=== PATIENT | male | born 1940 | race Caucasian/White ===

== ENCOUNTER 2018-09-18 16:41 | Emergency (ER) | payer MEDICARE, OTHER ==
[2018-09-18 17:30] LABS: BASOPHILS # (AUTO) 0.1 10^3/uL (0.0-0.1); BASOPHILS % (AUTO) 0.9 %; EOSINOPHILS # (AUTO) 0.4 10^3/uL (0.0-0.7); EOSINOPHILS % (AUTO) 7.3 %; HGB - HEMOGLOBIN 13.6 g/dL (14.0-18.0); LYMPHOCYTES # (AUTO) 2.2 10^3/uL (1.5-3.5); LYMPHOCYTES % (AUTO) 36.9 %; MEAN CORPUSCULAR HEMOGLOBIN 32.8 pg (27.0-31.0); MEAN CORPUSCULAR HGB CONC 33.2 g/dL (32.0-36.0); MEAN PLATELET VOLUME 7.8 fL (7.4-11.4); MONOCYTES # (AUTO) 0.6 10^3/uL (0.0-1.0); MONOCYTES % (AUTO) 10.3 %; NEUTROPHILS # (AUTO) 2.7 10^3/uL (1.5-6.6); NEUTROPHILS % (AUTO) 44.6 %; PLT - PLATELET COUNT 234 10^3/uL (130-450); RED BLOOD COUNT 4.15 10^6/uL (4.70-6.10); RED CELL DISTRIBUTION WIDTH 13.2 % (12.0-15.0)
--- NOTE | 2018-09-18 17:37 | ED Physician Documentation ---
History of Present Illness - Stated complaint Stated Complaint: FACE NUMB/DIZZY/FINGERS NUMB - Chief complaint Chief Complaint: General - History obtained from History obtained from: Patient, Friend - History of Present Illness Timing: Last night Pain level max: 0 Pain level now: 0 Improved by: nothing Worsened by: nothing - Additonal information Additional information: 77-year-old male presents to the emergency department with intermittent numbness and tingling to the left side of the face as well as the left tongue left arm and occasional left leg. Has been ongoing since 6:00 last night. Comes and goes. Seems to be becoming more constant now. Has never had similar symptoms. Has had viral symptoms recently. No chest pain. No palpitations. No motor weakness. No difficulty with speech. No visual changes Review of Systems Ten Systems: 10 systems reviewed and negative Constitutional: denies: Fever, Chills Throat: denies: Sore throat Cardiac: denies: Chest pain / pressure, Palpitations Respiratory: denies: Cough GI: denies: Nausea, Vomiting Skin: denies: Rash Musculoskeletal: denies: Neck pain, Back pain Neurologic: denies: Headache, Head injury, LOC PD PAST MEDICAL HISTORY - Past Medical History Past Medical History: Yes Cardiovascular: Hypertension, High cholesterol Endocrine/Autoimmune: Type 2 diabetes - Past Surgical History Past Surgical History: No - Present Medications Home Medications: Ambulatory Orders Medication Instructions Recorded Confirmed Albuterol Sulf [Ventolin Hfa 09/18/18 Inhaler] Aspirin Chewable [[place] 09/18/18 Aspirin] Glimepiride 09/18/18 Metoprolol Tartrate 09/18/18 Multivitamin [Multiple Vitamins] 09/18/18 Pioneer-3/Dha/Epa/Fish Oil [Fish Oil 09/18/18 1,000 mg Softgel] Simvastatin 09/18/18 metFORMIN [Glucophage] 1,000 mg PO BID 09/18/18 09/18/18 - Allergies Allergies/Adverse Reactions: Allergies Allergy/AdvReac Type Severity Reaction Status Date / Time crab Allergy Severe Edema Verified 09/18/18 18:35 morphine AdvReac Unknown Verified 09/18/18 18:49 - Living Situation Living Situation: reports: With family Living Arrangement: reports: At home - Social History Does the pt smoke?: No Smoking Status: Former smoker Does the pt have substance abuse?: No - Family History Family history: reports: Non contributory PD ED PE NORMAL - Vitals Vital signs reviewed: Yes - General General: Alert and oriented X 3, No acute distress - HEENT HEENT: PERRL, Moist mucous membranes - Neck Neck: Supple, no meningeal sign - Cardiac Cardiac: RRR, Strong equal pulses - Respiratory Respiratory: No respiratory distress, Clear bilaterally - Abdomen Abdomen: Soft, Non tender, Non distended - Back Back: No spinal TTP - Derm Derm: Warm and dry - Extremities Extremities: No edema - Neuro Neuro: Alert and oriented X 3, No motor deficit, Normal speech Eye Opening: Spontaneous Motor: Obeys Commands Verbal: Oriented GCS Score: 15 - Psych Psych: Normal mood, Normal affect Results - Vitals Vitals: Vital Signs - 24 hr 09/18/18 09/18/18 09/18/18 16:51 18:33 18:47 Temperature 36.0 C L Heart Rate 72 78 74 Respiratory 16 18 16 Rate Blood Pressure 196/93 H 170/113 H 165/93 H O2 Saturation 99 98 99 09/18/18 19:48 Temperature Heart Rate 65 Respiratory 16 Rate Blood Pressure 155/93 H O2 Saturation 96 Oxygen O2 Source Room air - EKG (time done) 1718 Rate: Rate (enter#) (74) Rhythm: NSR [place]: Normal Intervals: 1st degree AVB QRS: Normal Ischemia: Normal ST segments - Labs Labs: Laboratory Tests 09/18/18 09/18/18 09/18/18 16:22 16:22 16:22 WBC 6.0 RBC 4.15 L Hgb 13.6 L Hct 41.1 L MCV 99.0 H MCH 32.8 H MCHC 33.2 RDW 13.2 Plt Count 234 MPV 7.8 Neut # (Auto) 2.7 Lymph # (Auto) 2.2 Stephens # (Auto) 0.6 Eos # (Auto) 0.4 Baso # (Auto) 0.1 Absolute Nucleated RBC 0.00 Nucleated RBC % 0.1 Sodium 136 Potassium 4.3 Chloride 101 Carbon Dioxide 26 Anion Gap 9.0 BUN 20 Creatinine 1.3 H Estimated GFR (MDRD) 54 L Glucose 114 H Calcium 8.6 Total Bilirubin 0.8 AST 28 ALT 45 Alkaline Phosphatase 83 Troponin I < 0.04 Total Protein 7.2 Albumin 4.1 Globulin 3.1 Albumin/Globulin Ratio 1.3 Lipase 39 Urine Color Urine Clarity Urine pH Ur Specific [place] Urine Protein Urine Glucose (UA) Urine Ketones Urine Occult Blood Urine Nitrite Urine Bilirubin Urine Urobilinogen Ur Leukocyte Esterase Ur Microscopic Review Urine Culture Comments 09/18/18 20:35 WBC RBC Hgb Hct MCV MCH MCHC RDW Plt Count MPV Neut # (Auto) Lymph # (Auto) Stephens # (Auto) Eos # (Auto) Baso # (Auto) Absolute Nucleated RBC Nucleated RBC % Sodium Potassium Chloride Carbon Dioxide Anion Gap BUN Creatinine Estimated GFR (MDRD) Glucose Calcium Total Bilirubin AST ALT Alkaline Phosphatase Troponin I Total Protein Albumin Globulin Albumin/Globulin Ratio Lipase Urine Color LT. YELLOW Urine Clarity CLEAR Urine pH 6.0 Ur Specific [place] <=1.005 Urine Protein NEGATIVE Urine Glucose (UA) NEGATIVE Urine Ketones NEGATIVE Urine Occult Blood NEGATIVE Urine Nitrite NEGATIVE Urine Bilirubin NEGATIVE Urine Urobilinogen 0.2 (NORMAL) Ur Leukocyte Esterase NEGATIVE Ur Microscopic Review NOT INDICATED Urine Culture Comments NOT INDICATED - Rads (name of study) ct head Radiology: Prelim report reviewed, EMP read contemporaneously, See rad report (normal head CT) PD MEDICAL DECISION MAKING - ED course Complexity details: reviewed results, re-evaluated patient, considered differential, d/w patient, d/w family, d/w cosmetic consultant ED course: 77-year-old male with intermittent numbness to the left side of the face left side of the tongue left arm and intermittent left leg. No acute findings on head CT. No acute laboratory issues. Discussed with the hospitalist admission for TIA workup. The hospitalist request CT Margie of the head and neck prior to observation. These were ordered and will be followed up by the hospitalist. A symptomatic here other than initially had numbness on the left side of the face. This document was made in part using voice recognition software. While efforts are made to proofread this document, sound alike and grammatical errors may occur. Departure - Departure Disposition: ED Place in Observation Clinical Impression: TIA (transient ischemic attack), Numbness, Paresthesia Condition: Stable NIHSS - Time Time: 18:00 - Level of Consciousness Level of consciousness: (0) Alert, Keenly responsive LOC Questions: (0) Answers both Q's correct LOC Commands: (0) Performs both correctly - Gaze Best Gaze: (0) Normal - Visual Visual: (0) No loss - Facial Palsy Facial Palsy: (0) Normal, symmetrical movement - Motor Arms (both separate) Motor Arm (right): (0) No drift Motor Arm (left): (0) No drift - Motor Legs (both separate) Motor Leg (right): (0) No drift Motor Leg (left): (0) No drift - Limb Ataxia Limb Ataxia: (0) Absent - Sensory Sensory: (1) Envq-rm-yvxkstyl loss - Best Language Best Language: (0) No aphasia - Dysarthria Dysarthria: (0) Normal - Extinction and Inattention (formally neg Extinction and inattention: (2) Profound kolby-inattention or extinction to more than one modality - Total Score/Results Total Score/Result: 3
[2018-09-18 17:41] LABS: ALBUMIN 4.1 g/dL (3.2-5.5); ALBUMIN/GLOBULIN RATIO 1.3 (1.0-2.2); BILIRUBIN,TOTAL 0.8 mg/dL (0.2-1.0); CALCIUM 8.6 mg/dL (8.5-10.3); CREATININE 1.3 mg/dL (0.6-1.2); TOTAL PROTEIN 7.2 g/dL (6.7-8.2)
[2018-09-18] MEDS ORDERED: IOVERSOL 320 100 ML VIAL IVP ONE ×3 (18:03→21:22)
--- NOTE | 2018-09-18 18:25 | CT Report ---
Reason: L facial numbness since last night Procedure Date: 09/18/2018 Accession Number: [id number] / [id number] Procedure: CT - Head W/O Stroke Protocol CPT Code: FULL RESULT: EXAM: CT HEAD EXAM DATE: 09/18/2018 06:11 PM. CLINICAL HISTORY: L facial numbness since last night. COMPARISON: 09/11/2010. TECHNIQUE: Multiaxial CT images were obtained from the foramen magnum to the vertex. Reformats: Sagittal and coronal. IV contrast: None. In accordance with CT protocol optimization, one or more of the following dose reduction techniques were utilized for this exam: automated exposure control, adjustment of mA and/or KV based on patient size, or use of iterative reconstructive technique. FINDINGS: Parenchyma: Minimal patchy hypodensity in the bilateral cerebral white matter most consistent with chronic small vessel ischemic change. No high-density lesions. No mass-effect. Corona-white differentiation is intact. Extraaxial Spaces: Normal for age. No subdural or epidural collections identified. Ventricles: Normal in size and position. Sinuses and Orbits: Mild left maxillary sinus mucosal thickening and mucoperiosteal thickening with interval uncinectomy. The other visualized paranasal sinuses are clear as are mastoids and middle ears. Status post bilateral cataract surgery. Bones: No evidence of fracture or calvarial defect. Other: Mild calcified plaque in bilateral cavernous internal carotid arteries. Middle cerebral arteries are symmetric and normal in density. IMPRESSION: 1. Minimal patchy chronic small vessel ischemic change in the bilateral cerebral white matter. 2. No intracranial hemorrhage, mass-effect, or current CT evidence of acute CVA. RADIA The call report notification system was initiated by Dr. Neal Huang at 18:22 hrs on 09/18/18. The above findings were discussed with Gino Hein by Dr. Neal Huang at 18:24 hrs on 09/18/18.
--- NOTE | 2018-09-18 18:25 | XRAY Report ---
Reason: dizziness Procedure Date: 09/18/2018 Accession Number: [id number] / [id number] Procedure: XR - Chest 1 View X-Ray CPT Code: 18239 FULL RESULT: EXAM: CHEST RADIOGRAPHY EXAM DATE: 09/18/2018 06:09 PM. CLINICAL HISTORY: Dizziness. Facial numbness. COMPARISON: None. TECHNIQUE: Upright AP view. FINDINGS: Lungs/Pleura: No focal opacities evident. No pleural effusion. No pneumothorax. Mediastinum: Within exam limitations, the cardiomediastinal contour is normal. Prior median sternotomy. Other: None. IMPRESSION: No evidence of active cardiopulmonary disease. RADIA
[2018-09-18 20:50] LABS: BILIRUBIN,URINE NEGATIVE (NEGATIVE); GLUCOSE, URINE (UA) NEGATIVE (NEGATIVE); KETONES,URINE (UA) NEGATIVE (NEGATIVE); LEUKOCYTE ESTERASE, URINE NEGATIVE (NEGATIVE); NITRITE,URINE NEGATIVE (NEGATIVE); OCCULT BLOOD,URINE NEGATIVE (NEGATIVE); PROTEIN,URINE NEGATIVE (NEGATIVE); UROBILINOGEN,URINE 0.2 (NORMAL) E.U./dL (NORMAL)
[2018-09-18 20:52] LABS: CLARITY,URINE CLEAR (CLEAR)
--- NOTE | 2018-09-18 21:48 | CT Report ---
Reason: L facial numbess Procedure Date: 09/18/2018 Accession Number: [id number] / [id number] Procedure: CT - Head Angio CPT Code: FULL RESULT: EXAM: CT ANGIOGRAM HEAD AND NECK. CT SCAN HEAD WITH CONTRAST. EXAM DATE:09/18/2018 08:36 PM. CLINICAL HISTORY:77-year-old with left facial numbness. Evaluate for intracranial pathology. COMPARISON:Noncontrast CT head 09/18/2018. TECHNIQUE: Routine axial helical CTA imaging was performed from the aortic arch through the [place] of [place]. Routine axial CT imaging of the head was performed following contrast administration. Reconstructions: Routine multiplanar 3D MIP reconstructions. IV contrast: 80 mL Optiray-320. NASCET Criteria are used for stenosis measurements. In accordance with CT protocol optimization, one or more of the following dose reduction techniques were utilized for this exam: automated exposure control, adjustment of mA and/or KV based on patient size, or use of iterative reconstructive technique. FINDINGS: CT SCAN HEAD: Parenchyma: No acute parenchymal hemorrhage, mass, or midline shift. Mild bilateral areas of white matter hypoattenuation seen that are age-indeterminate but appear chronic. There is no convincing CT evidence of acute infarct. Cortical volume appears age-appropriate. No abnormal postcontrast enhancement. Extraaxial Spaces: Normal for age. No subdural or epidural collections identified. No abnormal postcontrast enhancement. Ventricles: Normal in size and position. Sinuses and Orbits: Changes of bilateral lens replacement. Postsurgical changes of left maxillary antrostomy and uncinectomy as well as partial left ethmoidectomy. There is moderate volume polypoidal mucosal thickening with extension into the left nasal cavity. Mastoid air cells and middle ear cavities are clear. Bones: No evidence of fracture or calvarial defect. There is a periapical lucency associated with the first right maxillary molar with extension into the right maxillary sinus with mild mucosal thickening. Other: Vascular calcifications of the cavernous ICA segments. CT ANGIOGRAM HEAD AND NECK: Minimal atherosclerotic plaque involving the aortic arch with no definite stenosis or penetrating aortic ulcer seen. Normal three-vessel takeoff of the great vessels. There is atherosclerotic plaque involving the origins left subclavian artery, left common carotid artery, right brachiocephalic artery, and right brachiocephalic artery with no high-grade stenosis seen. RIGHT: Common Carotid Artery: Patent without significant stenosis. Carotid Bulb: There is moderate atherosclerotic plaque at the bifurcation and siphon. Stenosis at the bifurcation by NASCET criteria: Less than 50% stenosis. Internal Carotid Artery: Tortuosity of the cervical ICA with no definite dissection or stenosis seen. Vascular calcifications of the cavernous ICA segment with no high-grade stenosis seen. No evidence of aneurysm along the intracranial ICA. External Carotid Artery: Unremarkable. Vertebral Artery: Atherosclerotic plaque involving the origin of the right vertebral artery between 30-40% stenosis. The remainder of the right vertebral artery appears patent with no evidence of dissection or stenosis seen. Anterior Cerebral Artery: Patent without significant stenosis, aneurysm, or vascular malformation. Middle Cerebral Artery: Patent without significant stenosis, aneurysm, or vascular malformation. Posterior Cerebral Artery: Patent without significant stenosis, aneurysm, or vascular malformation. Posterior Communicating Artery: Patent. No aneurysm. LEFT: Common Carotid Artery: Patent without significant stenosis. Carotid Bulb: There is moderate atherosclerotic plaque at the bifurcation and siphon. Stenosis at the bifurcation by NASCET criteria: Less than 50% stenosis. Internal Carotid Artery: Tortuosity of the cervical ICA with no definite dissection or stenosis seen. Vascular calcifications of the cavernous ICA segment with no high-grade stenosis seen. There is a inferolateral projecting outpouching arising from the left supraclinoid ICA measuring 1.1 x 1.5 mm (series 5, image 112). External Carotid Artery: Unremarkable. Vertebral Artery: Patent without significant stenosis. No evidence of dissection. Anterior Cerebral Artery: Patent without significant stenosis, aneurysm, or vascular malformation. Middle Cerebral Artery: Patent without significant stenosis, aneurysm, or vascular malformation. Posterior Cerebral Artery: Patent without significant stenosis, aneurysm, or vascular malformation. Posterior Communicating Artery: Patent. No aneurysm. CENTRAL: Anterior Communicating Artery: Patent. No aneurysm. Basilar Artery: Patent without significant stenosis. No aneurysm. DURAL VENOUS SINUSES AND MAJOR CENTRAL VEINS: Patent. OTHER: The visualized pharynx and larynx appear normal. Major salivary glands appear normal. Thyroid gland appears normal. No cervical lymphadenopathy or necrotic lymph nodes seen. Soft tissues of the neck appear normal. Dependent atelectatic changes. No definite pulmonary nodule or mass seen.. No acute fracture or traumatic subluxation of the cervical spine. Multilevel degenerative changes. No suspicious osseous lesion. POST-CONTRAST HEAD: No abnormal enhancement. IMPRESSION: CT SCAN HEAD: 1. No definite acute infarct seen. If there is clinical concern for acute stroke or if symptoms persist an MR brain could be considered to evaluate for small or subtle pathology. 2. No acute intracranial hemorrhage, mass, hydrocephalus, or midline shift. No abnormal postcontrast enhancement. 3. Mild white matter changes seen that appear chronic and may represent sequela of chronic small vessel ischemic disease. 4. There is a periapical lucency associated with the first right maxillary molar with extension into the right maxillary sinus with mild mucosal thickening. 5. Postsurgical changes of left maxillary antrostomy and uncinectomy as well as partial left ethmoidectomy. There is moderate volume polypoidal mucosal thickening of the left maxillary sinus with extension into the left nasal cavity. CT ANGIOGRAM NECK: 1. There is atherosclerotic plaque seen at the origin of the right vertebral artery with between 30-40%stenosis. 2. There is atherosclerotic plaque involving the carotid bifurcations with less than 50% stenosis. CT ANGIOGRAM HEAD: 1. No large vessel occlusion. 2. There is a inferolateral projecting outpouching arising from the left supraclinoid ICA measuring 1.1 x 1.5 mm (series 5, image 112). Finding may represent infundibulum though a small aneurysm cannot be excluded. 3. No high-grade stenosis. RADIA
[2018-09-18 23:14] VITALS: BP 163/109
--- NOTE | 2018-09-18 23:31 | ED Physician Documentation ---
ED Addendum - Addendum Addendum: 09/18/18 23:28 The patient had the results of his CT angiogram of head and neck which did not show any significant significant stenoses and no obvious clots or abnormal blood flow. There was a under 2 mm sized enlargement that may have been an infundibulum versus small aneurysm. There is no signs of bleeding. Given the size of it, I would think it is an incidental finding. His degree of stenoses being under 50% throughout were also nonsignificant. The hospitalist here asked that I talk with [facility] in light of the fact that we have no MRI available until Friday. I talked with [facility] who felt the patient would benefit from an MRI but there was not a time urgency of needing it to be done right away and so the neurologist did not feel the patient needed transfer based on his symptoms and CT findings. I have asked him if timeframe of next week is reasonable for the MRI and the neurologist felt that it was in the patient could be potentially discharged with an aspirin daily and follow-up with his primary care. I talked with our hospitalist again and relayed this and we will change the disposition to discharge from the department. The patient is comfortable with this.
== END 2018-09-18 23:44 | disposition home or self-care (01) ==
LOC: ED 16:41
DX: G45.9 Transient cerebral ischemic attack, unspecified (principal); I44.0 Atrioventricular block, first degree; I10 Essential (primary) hypertension; E11.9 Type 2 diabetes mellitus without complications; Z79.84 Long term (current) use of oral hypoglycemic drugs; Z79.82 Long term (current) use of aspirin; Z87.891 Personal history of nicotine dependence
CPT/HCPCS: 36415; 70450; 70496; 70498; 71045; 80053; 81003; 83690; 84484; 85025; 85651; 93005; 99284; Q9967; 81001; 87086